=== PATIENT | male | born 1955 | race Caucasian/White ===

== ENCOUNTER 2024-05-16 11:00 | Inpatient (IN) | payer BC ==
[~2024-05-16] VITALS: Ht 175.3 cm; Wt 89.4 kg
[2024-05-16 11:15] VITALS: BP_SYST 115; PULSE 88; RESP 22; TEMP 97.9
[2024-05-16] MEDS ORDERED: TAMS-11 PO (11:48)
[2024-05-16] MEDS ORDERED: ALLO300T2 PO (11:48)
[2024-05-16] MEDS ORDERED: FLEETMO RC ×2 (11:48)
[2024-05-16] MEDS ORDERED: MOM PO (11:48)
[2024-05-16] MEDS ORDERED: TACR1CAP2 PO (11:48)
[2024-05-16] MEDS ORDERED: PRED5TAB PO (11:48)
[2024-05-16] MEDS ORDERED: METO25TA3 PO (11:48)
[2024-05-16] MEDS ORDERED: APIX2.5T PO (11:48)
[2024-05-16] MEDS ORDERED: ATOR20TA64 PO (11:48)
[2024-05-16] MEDS ORDERED: BISA-140 PO (11:48)
[2024-05-16] MEDS ORDERED: DOCU-144 PO (11:48)
[2024-05-16] MEDS ORDERED: CALC-1112 PO (11:48)
[2024-05-16] MEDS ORDERED: LACT10SO7 PO (11:48)
[2024-05-16] MEDS ORDERED: LANS30CA53 PO (11:48)
[2024-05-16] MEDS ORDERED: SENN8.6T19 PO (11:48)
[2024-05-16] MEDS ORDERED: FER300L PO (11:48)
[2024-05-16 12:01] LABS: BASOPHILS % (AUTO) 0.7 % (0.0-2.0); EOSINOPHILS % (AUTO) 1.3 % (0.0-4.0); LYMPHOCYTES # (AUTO) 0.6 K/uL (1.0-5.5); LYMPHOCYTES % (AUTO) 18.6 % (20.5-51.5); MEAN CORPUSCULAR HEMOGLOBIN 34 pg (27-31); MEAN CORPUSCULAR HGB CONC 32 % (32-36); MEAN CORPUSCULAR VOLUME 104 fL (79.0-98.0); MONOCYTES # (AUTO) 0.2 K/uL (0.0-1.0); MONOCYTES % (AUTO) 5.4 % (1.7-9.3); NEUTROPHILS # (AUTO) 2.5 K/uL (1.8-7.7); PLATELET COUNT (AUTO) 132 K/uL (130-430); RED CELL DISTRIBUTION WIDTH 22.3 % (9.0-15.0); WHITE BLOOD COUNT (AUTO) 3.4 K/uL (4.8-10.8)
[2024-05-16 12:10] LABS: RED BLOOD CELL COUNT(AUTO) 1.46 MIL/uL (4.2-6.2)
[2024-05-16 12:11] LABS: HEMATOCRIT 15.1 % (36-54); HEMOGLOBIN 4.9 g/dL (14.0-18.0)
[2024-05-16 12:13] LABS: ALBUMIN 1.9 g/dL (3.4-4.8); BILIRUBIN,DIRECT 0.7 mg/dL (0.0-0.3); CALCIUM 8.6 mg/dL (8.4-11.0); CREATININE 2.12 mg/dL (0.55-1.30); INR 1.2 (0.80-1.20); POTASSIUM 3.7 mmol/L (3.5-5.1); PROTHROMBIN TIME 12.2 SECS (9.5-12.5); TOTAL BILIRUBIN 1.2 mg/dL (0.0-1.0); TOTAL PROTEIN, SERUM 5.7 g/dL (6.4-8.3)
[2024-05-16] MEDS ORDERED: MORPHINE 2 MG/ML INJ. SYRINGE IVP PRN ×2 (13:15)
[2024-05-16] MEDS ORDERED: ONDANSETRON HCL 4 MG/2 ML VIAL IVP PRN (13:15)
[2024-05-16] MEDS ORDERED: LORazepam 2 MG/ML VIAL IVP PRN (13:15)
[2024-05-16] MEDS ORDERED: ZOLPIDEM TARTRATE 5 MG TABLET PO PRN (13:15)
[2024-05-16] MEDS ORDERED: POTASSIUM CHLORIDE 20 MEQ TABLET.ER PO PRN (13:15)
[2024-05-16] MEDS ORDERED: MUPIROCIN 2% TOPICAL OINTMENT 22 GM NS PRN (13:15)
[2024-05-16] MEDS ORDERED: DOCUSATE SODIUM 100 MG CAPSULE PO PRN (13:15)
[2024-05-16] MEDS ORDERED: MAGNESIUM SULFATE 50 ML IV PRN (13:15)
[2024-05-16 13:24] LABS: ANISOCYTOSIS 2+; OVALOCYTES FEW; TEAR DROP CELLS FEW
[2024-05-16] MEDS ORDERED: ACETAMINOPHEN 500 MG TABLET PO PRN ×2 (13:45)
[2024-05-16 21:00] VITALS: BP_SYST 101; PULSE 90; RESP 16; TEMP 98; O2SAT 96
[2024-05-16] MEDS ORDERED: METOPROLOL SUCCINATE 25 MG TAB.SR.24H (TOPROL XL) PO SCH (21:00)
[2024-05-16] MEDS ORDERED: PANTOPRAZOLE SODIUM 40 MG/VIAL (PROTONIX) IVP SCH (21:00)
[2024-05-16] MEDS ORDERED: ALLOPURINOL 300 MG TABLET (ZYLOPRIM) PO SCH (21:00)
[2024-05-16] MEDS ORDERED: ATORVASTATIN 20 MG TABLET PO SCH (21:00)
[2024-05-17] MEDS ORDERED: VITAMIN D3 PO SCH (09:00)
[2024-05-17] MEDS ORDERED: predniSONE 5 MG TABLET PO SCH (09:00)
[2024-05-17] MEDS ORDERED: CALCIUM CARBONATE/VITAMIN D3 1 TAB TABLET PO SCH (09:00)
[2024-05-17] MEDS ORDERED: CALCIUM CARBONATE PO SCH (09:00)
[2024-05-17] MEDS ORDERED: TAMSULOSIN HCL 0.4 MG CAP PO SCH (09:00)
[2024-05-17] MEDS ORDERED: [UNRECOGNIZED DRUG - OTHER] PO SCH (09:00)
[2024-05-17] MEDS ORDERED: TACROLIMUS ANHYDROUS 1 MG CAPSULE (PROGRAF) PO SCH (09:00)
== END 2024-05-17 23:00 | DRG 698 ==
LOC: SED 11:00 → STU 13:23
PROVIDERS: ADMIT General Practice; ATTEND General Practice
PROC: 30233N1 Transfusion of Nonautologous Red Blood Cells into Peripheral Vein, Percutaneous Approach (ICD-10-PCS; principal; 2024-05-16)
DX: T86.12 Kidney transplant failure (principal); D61.810 Antineoplastic chemotherapy induced pancytopenia; E43 Unspecified severe protein-calorie malnutrition; N17.0 Acute kidney failure with tubular necrosis; N18.6 End stage renal disease; K92.2 Gastrointestinal hemorrhage, unspecified; D84.9 Immunodeficiency, unspecified; E87.20 Acidosis, unspecified; D61.818 Other pancytopenia; Z94.4 Liver transplant status; D63.8 Anemia in other chronic diseases classified elsewhere; Z79.899 Other long term (current) drug therapy; Z68.29 Body mass index [BMI] 29.0-29.9, adult
CPT/HCPCS: 36415; 71045; 80048; 80076; 82150; 83037; 83605; 83690; 85025; 85610; 85730; 86886; 86900; 86901; 86920; 93005; 99285; C1751; G0378; J7050; J7507; P9021